=== PATIENT | female | born 1990 | race Caucasian/White ===

== ENCOUNTER 2017-05-04 08:44 | Emergency (ER) | payer SELFPAY ==
[~2017-05-04] VITALS: Ht 170.2 cm; Wt 95.4 kg
[~2017-05-04 08:44] MED LIST: LORT7.5T3 PO; PROM1SUP12 PR; Z.0.NO CURRENT MEDS
[2017-05-04 08:46] VITALS: BP 117/86; PULSE 91; RESP 18; TEMP 98.5; O2SAT 100
[2017-05-04] MEDS ORDERED: diphenhydrAMINE HCL 50 MG/ML VIAL IVP ONE (09:00)
[2017-05-04] MEDS ORDERED: PROCHLORPERAZINE INJ 10 MG/2 ML VIAL IVP ONE (09:00)
[2017-05-04] MEDS ORDERED: MORPHINE SULFATE 4 MG/ML INJ IV PUSH ONE ×2 (09:00→11:00)
[2017-05-04] MEDS ORDERED: methylPREDNISolone SOD SUCC 125 MG/2 ML VIAL IV PUSH ONE (09:00)
[2017-05-04] MEDS ORDERED: SODIUM CHLORIDE 0.9% FLUSH 10 ML FLUSH IVF PRN (09:00)
[2017-05-04] MEDS ORDERED: SODIUM CHLOR 0.9% 1000 ML INJ 1,000 ML IV ONE ×2 (09:00→10:15)
[2017-05-04] MEDS ORDERED: KETOROLAC TROMETHAMINE 30 MG/ML (IVP) VIAL IVP ONE (09:00)
[2017-05-04] MEDS ORDERED: ASTHMA INHALER (09:06)
--- NOTE | 2017-05-04 09:07 | PD ---
HPI Chief Complaint: Abdominal Pain Time Seen by Provider: 08:53 Travel History International Travel<30 days: No Contact w/Intl Traveler<30days: No Traveled to known affect area: No History of Present Illness HPI The patient is a 26-year-old female who presents emergency department for migraine. The patient has a history of migraines since age of 10 and has undergone previous workup in [place] where she was living with her migraine started. The patient states she was under the care of a physician was on Fioricet as needed for several years, however, lost health care insurance and does not currently have a primary physician. The patient's headache started 4 days ago, was located behind the right eye, now radiates to both aspects of the head in a bandlike fashion. The patient has photophobia, phonophobia, nausea, vomiting, and now has had a few episodes of diarrhea. She does complain of some posterior neck pain secondary to her headache. The patient states that it came on slowly, there is no thunderclap quality. She denies any fever, chills, or sweats. Symptoms are moderate, similar to previous headaches, and there are no current alleviating factors. PFSH Past Medical History Narrative Medical Migraines, ectopic Diminished Hearing: No Gastrointestinal Disorders: Yes (COLITIS) ?: Not LMP: ONE WEEK Past Surgical History Narrative Surgical Right fallopian removal after ectopic , maxillofacial surgery Social History Alcohol Use: No Tobacco Use: No Substance Use: No Allergies-Medications (Allergen,Severity, Reaction): Coded Allergies: Penicillin (Verified Allergy, Severe, HIVES, 05/04/17) Latex (Verified Allergy, Unknown, 05/04/17) Reported Meds & Prescriptions Reported Meds & Active Scripts Active Phenergan 25 mg supp (Promethazine HCl) 25 Mg Sup 25 Mg GA Q6HPRN FOR NAUSEA/VOMITING Lortab 7.5/500 (Acetaminophen/Hydrocodone Bitart) Tab 1 Tab PO Q4HPRN FOR PAIN Reported [Asthma Inhaler] No Current Meds (Miscellaneous Medication) Misc Review of Systems Except as stated in HPI: all other systems reviewed are Neg General / Constitutional: No: Fever HENT: Positive: Headaches, Neck Pain Cardiovascular: No: Chest Pain or Discomfort Respiratory: No: Shortness of Breath Gastrointestinal: Positive: Nausea, Vomiting, Diarrhea, No: Abdominal Pain Neurologic: Positive: Headache, No: Change in Mentation, Paresthesia, Sensory Disturbance Physical Exam Narrative GENERAL: Awake, alert, pleasant 26-year-old female who appears her stated age and is in no acute respiratory distress. She is initially examined in a darkened room secondary to photophobia. SKIN: Focused skin assessment warm/dry. HEAD: Atraumatic. Normocephalic. EYES: Pupils equal and round. Pupils are 4 mm bilateral and reactive. Patient is wearing glasses, is able to see fingers at a distance of 2 feet without difficulty. EOMs are intact. Photophobia noted upon initial exam. ENT: No nasal bleeding or discharge. Mucous membranes pink and moist. NECK: Trachea midline. No JVD. Patient is able flex her neck, no significant meningeal signs, mild tenderness of the paravertebral muscles. CARDIOVASCULAR: Regular rate and rhythm. No murmur appreciated. RESPIRATORY: No accessory muscle use. Clear to auscultation. Breath sounds equal bilaterally. GASTROINTESTINAL: Abdomen soft, non-tender, nondistended. No rebound tenderness. MUSCULOSKELETAL: No obvious deformities. No clubbing. No cyanosis. No edema. NEUROLOGICAL: Awake and alert. No obvious cranial nerve deficits. Motor grossly within normal limits. Normal speech. Nonfocal. Oriented 4. Follows commands without difficulty. PSYCHIATRIC: Appropriate mood and affect; insight and judgment normal. Data Data Last Documented VS Vital Signs Date Time Temp Pulse Resp B/P Pulse Ox O2 Delivery O2 Flow Rate FiO2 05/04/17 10:10 16 05/04/17 09:45 106 98 Room Air 05/04/17 08:46 98.5 117/86 Orders Ecg Monitoring (05/04/17 09:00) Iv Access Insert/Monitor (05/04/17 09:00) Oximetry (05/04/17 09:00) Sodium Chloride 0.9% Flush (Ns Flush) (05/04/17 09:00) Ketorolac Inj (Toradol Inj) (05/04/17 09:00) Prochlorperazine Inj (Compazine Inj) (05/04/17 09:00) Diphenhydramine Inj (Benadryl Inj) (05/04/17 09:00) Sodium Chlor 0.9% 1000 Ml Inj (Ns 1000 M (05/04/17 09:00) Methylprednisolone So Succ Inj (Solumedr (05/04/17 09:00) Morphine Inj (Morphine Inj) (05/04/17 09:30) Ondansetron Inj (Zofran Inj) (05/04/17 10:15) Ct Brain W/O Iv Contrast(Rout) (05/04/17 ) Sodium Chlor 0.9% 1000 Ml Inj (Ns 1000 M (05/04/17 10:15) Morphine Inj (Morphine Inj) (05/04/17 11:00) Morphine Inj (Morphine Inj) (05/04/17 11:00) MDM Medical Decision Making Medical Screen Exam Complete: Yes Emergency Medical Condition: Yes Medical Record Reviewed: Yes Interpretation(s) CT of the brain is negative. Differential Diagnosis Differential diagnosis includes migraine, status migraine, tension headache, glaucoma, cluster headache, subarachnoid hemorrhage, meningitis, abdominal migraine. Narrative Course IV was established, the patient was placed on cardiac telemetry monitoring, and placed on continuous pulse oximetry monitoring. The patient received Toradol 30 mg intravenously, Compazine 10 mg intravenously, Benadryl 50 mg intravenously , morphine 4 mg intravenously, Solu-Medrol 125 mg intravenously, 1 L of IV fluids. The patient was monitored in the emergency department. The patient was reevaluated at 10 AM, her headache had slightly improved, however, she has some persistent nausea with vomiting. Therefore, the patient was administered Zofran [address] the brain was ordered to rule out subarachnoid hemorrhage/intracranial hemorrhage. The patient was reevaluated at 10:55 AM, her nausea had resolved, she still had a headache at 4/10. Therefore, the patient was administered 4 mg of morphine intravenously. CT of the brain is negative. The patient is stable for outpatient follow-up. She will be provided a prescription for Fioricet and Phenergan. She is advised to follow-up with neurology on an outpatient basis and return if symptoms worsen or progress. Diagnosis Primary Impression: Cephalgia Qualified Code: R51 - Acute nonintractable headache, unspecified headache type Patient Instructions: General Instructions Additional Instructions: Please provide the patient a copy of her CT results at discharge. Follow-up with neurology. Fioricet and Phenergan as directed. Return if symptoms worsen or progress. Med/Other Pt SpecificInfo: Prescription(s) given Scripts Promethazine (Phenergan)25 Mg Abnyke05 Mg PO Q6H PRN (NAUSEA OR VOMITING) #15 TAB Ref 0 Prov:Jose Taylor MD 05/04/17 Aemkpezjrq-Zzoaaqxjaacut-Qpklldxy (Fioricet)50-300-40 Mg Cap1 Cap PO Q4H PRN ( HEADACHE) #15 CAP Ref 0 Prov:Jose Taylor MD 05/04/17 Disposition: 01 DISCHARGE HOME Condition: Stable Jose Taylor MD May 04, 2017 09:07
[2017-05-04] MEDS ORDERED: MORPHINE SULFATE 8 MG/ML INJ IV PUSH ONE ×2 (09:30→11:00)
[2017-05-04 09:45] VITALS: PULSE 106; RESP 15; O2SAT 98
[2017-05-04] MEDS ORDERED: ONDANSETRON HCL 4 MG/2 ML VIAL IV PUSH ONE (10:15)
--- NOTE | 2017-05-04 11:03 | RADRPT ---
EXAM DATE/TIME: 05/04/2017 10:23 [facility] COMPARISON: No previous studies available for comparison. INDICATIONS : Cephalgia. RADIATION DOSE: 63.94 CTDIvol (mGy) MEDICAL HISTORY : None SURGICAL HISTORY : None. ENCOUNTER: Initial ACUITY: 4 - 6 days PAIN SCALE: 5/10 LOCATION: Bilateral cranial TECHNIQUE: Multiple contiguous axial images were obtained of the head. Using automated exposure control and adj ustment of the mA and/or kV according to patient size, radiation dose was kept as low as reasonably a chievable to obtain optimal diagnostic quality images. DICOM format image data is available electro nically for review and comparison. FINDINGS: CEREBRUM: The ventricles are normal for age. No evidence of midline shift, mass lesion, hemorrhage or acute in farction. No extra-axial fluid collections are seen. POSTERIOR FOSSA: The cerebellum and brainstem are intact. The 4th ventricle is midline. The cerebellopontine angle i s unremarkable. EXTRACRANIAL: The visualized portion of the orbits is intact. SKULL: The calvaria is intact. No evidence of skull fracture. CONCLUSION: No acute disease. Dominick Warner MD on May 04, 2017 at 11:01 Board Certified Radiologist. This report was verified electronically.
[2017-05-04] MEDS ORDERED: BUTA1CAP PO (11:08)
[2017-05-04] MEDS ORDERED: PROM25TA10 PO (11:09)
[2017-05-04 11:42] VITALS: BP 107/60; PULSE 75; RESP 18; O2SAT 99
== END 2017-05-04 12:36 | disposition home or self-care (01) ==
LOC: PHED 08:44
DX: R51 Headache (principal); Z88.0 Allergy status to penicillin
CPT/HCPCS: 70450; 96361; 96374; 96375; 96376; 99285; J0780; J1200; J1885; J2270; J2405; J2930; J7030

== ENCOUNTER 2017-05-09 04:05 | Emergency (ER) | payer SELFPAY ==
[~2017-05-09] VITALS: Ht 170.2 cm; Wt 96.3 kg
[~2017-05-09 04:05] MED LIST changes: +ASTHMA INHALER; +BUTA1CAP PO; +PROM25TA10 PO
[2017-05-09 04:08] VITALS: BP 131/86; PULSE 92; TEMP 98.1; O2SAT 97
[2017-05-09] MEDS ORDERED: SODIUM CHLOR 0.9% 1000 ML INJ 1,000 ML IV ONE (04:33)
[2017-05-09] MEDS ORDERED: VENTAER INH (04:35)
--- NOTE | 2017-05-09 04:43 | PD ---
HPI Chief Complaint: Headache Time Seen by Provider: 04:33 Travel History International Travel<30 days: No Contact w/Intl Traveler<30days: No Traveled to known affect area: No History of Present Illness HPI The patient is a 26-year-old female with a history of migraine headaches who states she was worked up in [place] when she was living there. She states she has her typical migraine headache only worse of gradual onset, starting behind her right eye and associated with nausea without vomiting. The headache was of gradual onset and there was no thunderclap quality. She denies fever, chills, chest pain or shortness of breath. She states the headache is of similar symptoms with her previous headaches only worse. The headache is been going on for 9 days now. When she left the emergency department on the her headache was relieved but when she woke up she had her headache again. She does not have a primary care physician but her friend says she will work to find her a primary care physician. She states the morphine made her itch and she did not like that. She wants us to try Dilaudid. She denies any focal neurologic change. She states she tried Fioricet at home which is worked before but it did not work this time. She also used Phenergan for the nausea but it did not help her headache. On her last visit on the of last month she had a CT scan which was normal. She denies any sore throat, ear pain, fever , dysuria, frequency or urgency. Is no possibility of , she is been from her and has not had sex in several years. The patient states her headache is bandlike and a 9/10. PFSH Past Medical History Asthma: Yes Diminished Hearing: No Gastrointestinal Disorders: Yes (COLITIS) Respiratory: Yes (asthma) Migraines: Yes Tetanus Vaccination: Unknown Influenza Vaccination: No ?: Not LMP: april 23- Ectopic : Yes (right salpingectomy) Tubal Ligation: Yes Past Surgical History Other Surgery: Yes (UPPER MAXILLA FACIAL) Social History Alcohol Use: No Tobacco Use: No Substance Use: No Allergies-Medications (Allergen,Severity, Reaction): Coded Allergies: Penicillin (Verified Allergy, Severe, HIVES, 05/09/17) Latex (Verified Allergy, Unknown, 05/09/17) Reported Meds & Prescriptions Reported Meds & Active Scripts Active Phenergan (Promethazine HCl) 25 Mg Tablet 25 Mg PO Q6H PRN Fioricet (Kinvjkaufk-Wmbidrsdqdiht-Slpyzbrp) 50-300-40 Mg Cap 1 Cap PO Q4H PRN Reported Ventolin Hfa 18 GM Inh (Albuterol Sulfate) 90 Mcg/Act Aer 2 Puff INH Q4-6H PRN Review of Systems Except as stated in HPI: all other systems reviewed are Neg Physical Exam Narrative GENERAL: The patient is alert, oriented 3 in moderate apparent distress with her headache. Her vital signs show pulse rate of 92 but otherwise normal. SKIN: Focused skin assessment warm/dry. HEAD: Atraumatic. Normocephalic. EYES: Pupils equal and round. No scleral icterus. No injection or drainage. ENT: No nasal bleeding or discharge. Mucous membranes pink and moist. NECK: Trachea midline. No JVD. CARDIOVASCULAR: Regular rate and rhythm. No murmur appreciated. RESPIRATORY: No accessory muscle use. Clear to auscultation. Breath sounds equal bilaterally. GASTROINTESTINAL: Abdomen soft, non-tender, nondistended. Hepatic and splenic margins not palpable. MUSCULOSKELETAL: No obvious deformities. No clubbing. No cyanosis. No edema. NEUROLOGICAL: Awake and alert. No obvious cranial nerve deficits. Motor grossly within normal limits. Normal speech. PSYCHIATRIC: Appropriate mood and affect; insight and judgment normal. Data Data Last Documented VS Vital Signs Date Time Temp Pulse Resp B/P Pulse Ox O2 Delivery O2 Flow Rate FiO2 05/09/17 05:20 16 05/09/17 05:20 73 112/67 97 Room Air 05/09/17 04:08 98.1 Orders Ecg Monitoring (05/09/17 04:33) Iv Access Insert/Monitor (05/09/17 04:33) Oximetry (05/09/17 04:33) Sodium Chloride 0.9% Flush (Ns Flush) (05/09/17 04:45) Prochlorperazine Inj (Compazine Inj) (05/09/17 04:45) Diphenhydramine Inj (Benadryl Inj) (05/09/17 04:45) Hydromorphone Pf Inj (Dilaudid Pf Inj) (05/09/17 04:45) Sodium Chlor 0.9% 1000 Ml Inj (Ns 1000 M (05/09/17 04:33) Lorazepam Inj (Ativan Inj) (05/09/17 04:45) Ketorolac Inj (Toradol Inj) (05/09/17 05:00) Ondansetron Inj (Zofran Inj) (05/09/17 05:30) Hydromorphone Pf Inj (Dilaudid Pf Inj) (05/09/17 05:30) Lorazepam Inj (Ativan Inj) (05/09/17 05:30) MDM Medical Decision Making Medical Screen Exam Complete: Yes Emergency Medical Condition: Yes Medical Record Reviewed: Yes Differential Diagnosis Migraine headache, tension headache, tension/migraine combination headache, cluster headache, normal pressure hydrocephalus, subarachnoid hemorrhagehighly unlikely Narrative Course The patient appears to have both tension and migraine components to her headache. It is now 0545 and the patient is sleeping. Diagnosis Primary Impression: Mixed migraine and muscle contraction headache Additional Instructions: As we discussed, please follow-up with a primary care physician to get regular treatment for your headaches. Emergency room treatment alone is inadequate for your headaches. Med/Other Pt SpecificInfo: No Change to Meds Disposition: 01 DISCHARGE HOME Condition: Stable Subhash Santizo MD May 09, 2017 04:43
[2017-05-09] MEDS ORDERED: diphenhydrAMINE HCL 50 MG/ML VIAL IVP ONE (04:45)
[2017-05-09] MEDS ORDERED: SODIUM CHLORIDE 0.9% FLUSH 10 ML FLUSH IVF PRN (04:45)
[2017-05-09] MEDS ORDERED: PROCHLORPERAZINE INJ 10 MG/2 ML VIAL IVP ONE (04:45)
[2017-05-09] MEDS ORDERED: KETOROLAC TROMETHAMINE 60 MG/2 ML (IM) VIAL IM ONE (04:45)
[2017-05-09] MEDS ORDERED: LORazepam 2 MG/ML VIAL IV PUSH ONE ×2 (04:45→05:30)
[2017-05-09] MEDS ORDERED: HYDROmorphone HCL PF 1 MG/ML VIAL IVS ONE (04:45)
[2017-05-09] MEDS ORDERED: KETOROLAC TROMETHAMINE 60 MG/2 ML (IM) VIAL IVP ONE (05:00)
[2017-05-09 05:16] VITALS: BP 104/60; PULSE 86; RESP 16; O2SAT 97
[2017-05-09 05:20] VITALS: BP 112/67; PULSE 73; RESP 17; O2SAT 97
[2017-05-09] MEDS ORDERED: ONDANSETRON HCL 4 MG/2 ML VIAL IV ONE (05:30)
[2017-05-09] MEDS ORDERED: HYDROmorphone HCL PF 1 MG/ML VIAL IVP ONE (05:30)
[2017-05-09 06:20] VITALS: BP 111/65
[2017-05-09 06:22] VITALS: RESP 16
== END 2017-05-09 06:30 | disposition home or self-care (01) ==
LOC: PHED 04:05
DX: G43.809 Other migraine, not intractable, without status migrainosus (principal); Z87.09 Personal history of other diseases of the respiratory system; Z87.19 Personal history of other diseases of the digestive system; Z86.69 Personal history of other diseases of the nervous system and sense organs
CPT/HCPCS: 96361; 96374; 96375; 96376; 99284; J0780; J1170; J1200; J1885; J2060; J2405; J7030

== ENCOUNTER 2017-08-17 22:49 | Emergency (ER) | payer SELFPAY ==
[~2017-08-17] VITALS: Ht 170.2 cm; Wt 95.2 kg
[~2017-08-17 22:49] MED LIST changes: -ASTHMA INHALER; -LORT7.5T3 PO; -PROM1SUP12 PR; +VENTAER INH; -Z.0.NO CURRENT MEDS
[2017-08-17 22:51] VITALS: BP 123/72; PULSE 95; RESP 16; TEMP 97.9; O2SAT 99
[2017-08-17 23:10] VITALS: BP 123/72; PULSE 95; RESP 16; TEMP 97.9; O2SAT 99
--- NOTE | 2017-08-17 23:15 | PD ---
HPI Chief Complaint: Headache, N/V/D Time Seen by Provider: 22:59 Travel History International Travel<30 days: No Contact w/Intl Traveler<30days: No Traveled to known affect area: No History of Present Illness HPI Patient is a 26 year old female presents to the er with headache, nausea, vomiting and diarrhea for the past 24 hours. States she's had headaches like this before. SHe's tried ibuprofen without relief. Denies visual difficulty, focalized weakness. Denies abdominal pain, VB/VD. Denies blood in stool or emesis. Denies thunderclap presentation. She states symptoms are severe and gradually worsening. associated signs and symptoms as above, duration as above. PFSH Past Medical History Asthma: Yes Diminished Hearing: No Gastrointestinal Disorders: Yes (COLITIS) Respiratory: Yes (asthma) Migraines: Yes ?: Not LMP: 07/20/2017 Ectopic : Yes (right salpingectomy) Tubal Ligation: Yes Past Surgical History Other Surgery: Yes (UPPER MAXILLA FACIAL) Social History Alcohol Use: No Tobacco Use: No Substance Use: No Allergies-Medications (Allergen,Severity, Reaction): Coded Allergies: penicillin G (Unverified Allergy, Severe, HIVES, 08/17/17) latex (Unverified Allergy, Unknown, 08/17/17) Reported Meds & Prescriptions Reported Meds & Active Scripts Active Reported Ventolin Hfa 18 GM Inh (Albuterol Sulfate) 90 Mcg/Act Aer 2 Puff INH Q4-6H PRN Review of Systems Except as stated in HPI: all other systems reviewed are Neg Physical Exam Narrative GENERAL: WD/WN in moderate discomfort. SKIN: Warm and dry. HEAD: Atraumatic. Normocephalic. EYES: Pupils equal and round. No scleral icterus. No injection or drainage. ENT: No nasal bleeding or discharge. Mucous membranes pink and moist. NECK: Trachea midline. No JVD. CARDIOVASCULAR: Regular rate and rhythm. RESPIRATORY: No accessory muscle use. Clear to auscultation. Breath sounds equal bilaterally. GASTROINTESTINAL: Abdomen soft, non-tender, nondistended. Hepatic and splenic margins not palpable. No cva tenderness. MUSCULOSKELETAL: Extremities without clubbing, cyanosis, or edema. No obvious deformities. NEUROLOGICAL: Awake and alert. CN ii-xii intact. 5/5 strength in all four extremities. Cerebellar testing negative. PSYCHIATRIC: Appropriate mood and affect; insight and judgment normal. Data Data Last Documented VS Vital Signs Date Time Temp Pulse Resp B/P (MAP) Pulse Ox O2 Delivery O2 Flow Rate FiO2 08/17/17 23:15 18 08/17/17 23:10 97.9 95 123/72 (89) 99 Orders Orders Urinalysis - C+S If Indicated (08/17/17 22:59) Ed Urine Pregnancytest Poc (08/17/17 22:59) Ecg Monitoring (08/17/17 23:22) Iv Access Insert/Monitor (08/17/17 23:22) Oximetry (08/17/17 23:22) Sodium Chloride 0.9% Flush (Ns Flush) (08/17/17 23:30) Diphenhydramine Inj (Benadryl Inj) (08/17/17 23:30) Metoclopramide Inj (Reglan Inj) (08/17/17 23:30) Ct Brain W/O Iv Contrast(Rout) (08/18/17 ) Complete Blood Count With Diff (08/18/17 00:17) Comprehensive Metabolic Panel (08/18/17 00:17) Lipase (08/18/17 00:17) Sodium Chloride 0.9% Flush (Ns Flush) (08/18/17 00:30) Jsnb-Smywk-Qfiw 325-50-40 Mg (Fioricet 3 (08/18/17 00:30) Sumatriptan Inj (Imitrex Inj) (08/18/17 00:30) Labs Laboratory Tests Test 08/17/17 23:19 08/18/17 00:25 Urine Color YELLOW Urine Turbidity CLEAR Urine pH 6.5 Urine Specific [place] 1.025 Urine Protein NEG mg/dL Urine Glucose (UA) NEG mg/dL Urine Ketones 15 mg/dL Urine Occult Blood MOD Urine Nitrite NEG Urine Bilirubin NEG Urine Leukocyte Esterase NEG Urine RBC 3-5 /hpf Urine WBC 0-2 /hpf Urine Squamous Epithelial Cells 6-8 /hpf Urine Bacteria OCC /hpf Microscopic Urinalysis Comment CULT NOT INDICATED White Blood Count 7.5 TH/MM3 Red Blood Count 4.84 MIL/MM3 Hemoglobin 14.2 GM/DL Hematocrit 41.8 % Mean Corpuscular Volume 86.5 FL Mean Corpuscular Hemoglobin 29.3 PG Mean Corpuscular Hemoglobin Concent 33.9 % Red Cell Distribution Width 12.0 % Platelet Count 256 TH/MM3 Mean Platelet Volume 8.9 FL Neutrophils (%) (Auto) 69.7 % Lymphocytes (%) (Auto) 22.2 % Monocytes (%) (Auto) 6.4 % Eosinophils (%) (Auto) 1.2 % Basophils (%) (Auto) 0.5 % Neutrophils # (Auto) 5.2 TH/MM3 Lymphocytes # (Auto) 1.7 TH/MM3 Monocytes # (Auto) 0.5 TH/MM3 Eosinophils # (Auto) 0.1 TH/MM3 Basophils # (Auto) 0.0 TH/MM3 CBC Comment DIFF FINAL Differential Comment Blood Urea Nitrogen 10 MG/DL Creatinine 0.88 MG/DL Random Glucose 119 MG/DL Total Protein 7.7 GM/DL Albumin 4.1 GM/DL Calcium Level 8.4 MG/DL Alkaline Phosphatase 87 U/L Aspartate Amino Transf (AST/SGOT) 12 U/L Alanine Aminotransferase (ALT/SGPT) 21 U/L Total Bilirubin 0.5 MG/DL Sodium Level 138 MEQ/L Potassium Level 3.2 MEQ/L Chloride Level 105 MEQ/L Carbon Dioxide Level 24.0 MEQ/L Anion Gap 9 MEQ/L Estimat Glomerular Filtration Rate 77 ML/MIN Lipase 151 U/L MDM Medical Decision Making Medical Screen Exam Complete: Yes Emergency Medical Condition: Yes Differential Diagnosis Recurrent headache, migraine, cluster, acute intracranial pathology unlikely, , gastritis, gastroenteritis, electrolyte abnormality. Narrative Course Patient roomed in ed, given reglan, phenergan benadryl. No relief in symptoms. CT head ordered, basic labs and additional medication. Discussed with Dr. Galan at 0030 at the end of my shift to follow up workup reassess patient and disposition appropriately. Patient low risk for spontaneous SAH, no nuchal rigidty and no fever. Dominick Cox MD Aug 17, 2017 23:15
[2017-08-17 23:30] LABS: BLOOD, URINE MOD (NEG); GLUCOSE,URINE NEG (NEG); KETONE, URINE 15 mg/dL (NEG); NITRITE,URINE NEG (NEG); PH, URINE 6.5 (5.0-8.5)
[2017-08-17] MEDS ORDERED: diphenhydrAMINE HCL 50 MG/ML VIAL IVP ONE (23:30)
[2017-08-17] MEDS ORDERED: SODIUM CHLORIDE 0.9% FLUSH 10 ML FLUSH IVF PRN (23:30)
[2017-08-17] MEDS ORDERED: METOCLOPRAMIDE HCL 10 MG/2 ML VIAL IVP ONE (23:30)
[2017-08-17 23:37] LABS: URINE COLOR YELLOW (YELLW/STRAW)
[2017-08-17 23:38] LABS: BACTERIA, URINE OCC /hpf; COMMENT (UR) CULT NOT INDICATED; CULTURE IF INDICATED CULT NOT INDICATED; WBC, URINE 0-2 /hpf (0-5)
[2017-08-18 00:10] VITALS: BP 135/64; PULSE 91; RESP 18; O2SAT 95
[2017-08-18] MEDS ORDERED: ACETAMIN 325 MG/BUTALBITAL 50 MG/CAFFEINE 40 MG TAB PO ONE (00:30)
[2017-08-18] MEDS ORDERED: SODIUM CHLORIDE 0.9% FLUSH 10 ML FLUSH IV FLUSH PRN (00:30)
[2017-08-18] MEDS ORDERED: SUMAtriptan INJ 6 MG/0.5 ML VIAL SQ ONE (00:30)
[2017-08-18 00:33] LABS: AUTOMATED NEUTROPHIL # 5.2 TH/MM3 (1.8-7.7); BASOPHIL % 0.5 % (0.0-2.0); EOSINOPHIL # 0.1 TH/MM3 (0-0.4); EOSINOPHIL % 1.2 % (0.0-4.0); HEMATOCRIT 41.8 % (35.0-46.0); HEMO FLAGS DIFF FINAL; LYMPH % 22.2 % (9.0-44.0); LYMPHOCYTE # 1.7 TH/MM3 (1.0-4.8); MEAN CELL VOLUME 86.5 FL (80.0-100.0); MEAN CORPUSCULAR HEMOGLOBIN 29.3 PG (27.0-34.0); MEAN CORPUSCULAR HGB CONC 33.9 % (32.0-36.0); MONO % 6.4 % (0.0-8.0); NEUT % 69.7 % (16.0-70.0); PLATELET COUNT 256 TH/MM3 (150-450); RED BLOOD COUNT 4.84 MIL/MM3 (4.00-5.30); WHITE BLOOD COUNT 7.5 TH/MM3 (4.0-11.0)
[2017-08-18 00:39] LABS: CHLORIDE 105 MEQ/L (98-107); POTASSIUM 3.2 MEQ/L (3.5-5.1); SODIUM (NA) 138 MEQ/L (136-145)
[2017-08-18 00:43] LABS: ANION GAP 9 MEQ/L (5-15); BLOOD UREA NITROGEN 10 MG/DL (7-18)
[2017-08-18 00:46] LABS: ALT (GPT) 21 U/L (10-53); AST (GOT) 12 U/L (15-37); GLOMERULAR FILTRATION RATE 77 ML/MIN (>89)
--- NOTE | 2017-08-18 00:46 | RADRPT ---
EXAM DATE/TIME: 08/18/2017 00:27 [facility] COMPARISON: CT BRAIN W/O CONTRAST, May 04, 2017, 10:23. INDICATIONS : Cephalgia. Migraine symptoms. RADIATION DOSE: 55.62 CTDIvol (mGy) MEDICAL HISTORY : Migraines, asthma SURGICAL HISTORY : Tubal ligation. upper maxilla surgery ENCOUNTER: Initial ACUITY: 1 day PAIN SCALE: 10/10 LOCATION: cranial TECHNIQUE: Multiple contiguous axial images were obtained of the head. Using automated exposure control and adj ustment of the mA and/or kV according to patient size, radiation dose was kept as low as reasonably a chievable to obtain optimal diagnostic quality images. DICOM format image data is available electro nically for review and comparison. FINDINGS: CEREBRUM: The ventricles are normal for age. No evidence of midline shift, mass lesion, hemorrhage or acute in farction. No extra-axial fluid collections are seen. POSTERIOR FOSSA: The cerebellum and brainstem are intact. The 4th ventricle is midline. The cerebellopontine angle i s unremarkable. EXTRACRANIAL: The visualized portion of the orbits is intact. SKULL: The calvaria is intact. No evidence of skull fracture. CONCLUSION: Normal examination. Asael Mckenna MD on August 18, 2017 at 0:44 Board Certified Radiologist. This report was verified electronically.
[2017-08-18 00:48] LABS: TOTAL BILIRUBIN ADULT 0.5 MG/DL (0.2-1.0)
[2017-08-18 00:49] LABS: ALKALINE PHOSPHATASE 87 U/L (45-117)
[2017-08-18 01:10] VITALS: BP 152/88; PULSE 74; RESP 18; O2SAT 95
[2017-08-18] MEDS ORDERED: POTASSIUM CHLORIDE 20 MEQ CONTROLLED RELEASE TAB PO ONE (01:45)
[2017-08-18] MEDS ORDERED: BUTA1CAP PO (01:50)
--- NOTE | 2017-08-18 01:51 | PD ---
Physical Exam Narrative Received sign out to follow up CT brain, labs and reevaluate patient. 26yo F with long history of migraine here with headache similar to her migraine. Pt was given reglan, diphenhydramine but headache did not improve so fioricet and sumatriptan given as well. Labs reviewed, no leukocytosis. Mild hypokalemia, replaced orally. Lipase normal. UA showed no leukocyte. Culture not indicated. CT brain negative. Pt reevaluated at bedside and said her headache improved. Nausea is gone as well. Said she was given fioricet prescription from ED last time and it helped. Currently does not have PMD or neurologist. Will give a few doses as prescription and have her follow up with [facility]. Return precautions given. Data Data Last Documented VS Vital Signs Date Time Temp Pulse Resp B/P (MAP) Pulse Ox O2 Delivery O2 Flow Rate FiO2 08/17/17 23:15 18 08/17/17 23:10 97.9 95 123/72 (89) 99 Orders Orders Urinalysis - C+S If Indicated (08/17/17 22:59) Ed Urine Pregnancytest Poc (08/17/17 22:59) Ecg Monitoring (08/17/17 23:22) Iv Access Insert/Monitor (08/17/17 23:22) Oximetry (08/17/17 23:22) Sodium Chloride 0.9% Flush (Ns Flush) (08/17/17 23:30) Diphenhydramine Inj (Benadryl Inj) (08/17/17 23:30) Metoclopramide Inj (Reglan Inj) (08/17/17 23:30) Ct Brain W/O Iv Contrast(Rout) (08/18/17 ) Complete Blood Count With Diff (08/18/17 00:17) Comprehensive Metabolic Panel (08/18/17 00:17) Lipase (08/18/17 00:17) Sodium Chloride 0.9% Flush (Ns Flush) (08/18/17 00:30) Pzmu-Ksceq-Cylw 325-50-40 Mg (Fioricet 3 (08/18/17 00:30) Sumatriptan Inj (Imitrex Inj) (08/18/17 00:30) Potassium Chloride (Kcl) (08/18/17 01:45) Labs Laboratory Tests Test 08/17/17 23:19 08/18/17 00:25 Urine Color YELLOW Urine Turbidity CLEAR Urine pH 6.5 Urine Specific [place] 1.025 Urine Protein NEG mg/dL Urine Glucose (UA) NEG mg/dL Urine Ketones 15 mg/dL Urine Occult Blood MOD Urine Nitrite NEG Urine Bilirubin NEG Urine Leukocyte Esterase NEG Urine RBC 3-5 /hpf Urine WBC 0-2 /hpf Urine Squamous Epithelial Cells 6-8 /hpf Urine Bacteria OCC /hpf Microscopic Urinalysis Comment CULT NOT INDICATED White Blood Count 7.5 TH/MM3 Red Blood Count 4.84 MIL/MM3 Hemoglobin 14.2 GM/DL Hematocrit 41.8 % Mean Corpuscular Volume 86.5 FL Mean Corpuscular Hemoglobin 29.3 PG Mean Corpuscular Hemoglobin Concent 33.9 % Red Cell Distribution Width 12.0 % Platelet Count 256 TH/MM3 Mean Platelet Volume 8.9 FL Neutrophils (%) (Auto) 69.7 % Lymphocytes (%) (Auto) 22.2 % Monocytes (%) (Auto) 6.4 % Eosinophils (%) (Auto) 1.2 % Basophils (%) (Auto) 0.5 % Neutrophils # (Auto) 5.2 TH/MM3 Lymphocytes # (Auto) 1.7 TH/MM3 Monocytes # (Auto) 0.5 TH/MM3 Eosinophils # (Auto) 0.1 TH/MM3 Basophils # (Auto) 0.0 TH/MM3 CBC Comment DIFF FINAL Differential Comment Blood Urea Nitrogen 10 MG/DL Creatinine 0.88 MG/DL Random Glucose 119 MG/DL Total Protein 7.7 GM/DL Albumin 4.1 GM/DL Calcium Level 8.4 MG/DL Alkaline Phosphatase 87 U/L Aspartate Amino Transf (AST/SGOT) 12 U/L Alanine Aminotransferase (ALT/SGPT) 21 U/L Total Bilirubin 0.5 MG/DL Sodium Level 138 MEQ/L Potassium Level 3.2 MEQ/L Chloride Level 105 MEQ/L Carbon Dioxide Level 24.0 MEQ/L Anion Gap 9 MEQ/L Estimat Glomerular Filtration Rate 77 ML/MIN Lipase 151 U/L [facility] Supervised Visit with KHUSHBOO: No Diagnosis Primary Impression: Migraine Qualified Codes: G43.909 - Migraine, unspecified, not intractable, without status migrainosus Patient Instructions: General Instructions Departure Forms: Tests/Procedures Additional Instruction: Please follow up with [facility] in 2-3 days. Return to the ED if symptoms worsen. Med/Other Pt SpecificInfo: Prescription(s) given Scripts Qqpnthnqww-Wgpjpbfynsuhz-Oqelinip (Fioricet) 50-300-40 Mg Cap 1 CAP PO Q4H Y for HEADACHE, #10 CAP 0 Refills Prov: Yenifer Galan DO 08/18/17 Disposition: 01 DISCHARGE HOME Condition: Stable Yenifer Galan DO Aug 18, 2017 01:50
[2017-08-18 02:05] VITALS: RESP 16
[2017-08-18 02:10] VITALS: BP 113/70
== END 2017-08-18 02:22 | disposition home or self-care (01) ==
LOC: PHED 22:49
DX: G43.909 Migraine, unspecified, not intractable, without status migrainosus (principal); E87.6 Hypokalemia
CPT/HCPCS: 70450; 80053; 81001; 83690; 84703; 85025; 96372; 96374; 96375; 99285; J1200; J2765; J3030

== ENCOUNTER 2018-04-26 12:52 | Emergency (ER) | payer OTHER ==
[~2018-04-26 12:52] MED LIST changes: -PROM25TA10 PO
[2018-04-26 12:58] VITALS: BP 140/76; PULSE 97; RESP 16; TEMP 98.6; O2SAT 98
[2018-04-26] MEDS ORDERED: SODIUM CHLOR 0.9% 1000 ML INJ 1,000 ML IV SCH (14:05)
[2018-04-26 14:15] VITALS: BP 151/88; PULSE 93; RESP 16; O2SAT 98
[2018-04-26] MEDS ORDERED: KETOROLAC TROMETHAMINE 30 MG/ML (IVP) VIAL IVP ONE (14:15)
[2018-04-26] MEDS ORDERED: DEXAMETHASONE SOD PHOS 20 MG/5 ML VIAL IV PUSH ONE (14:15)
[2018-04-26] MEDS ORDERED: diphenhydrAMINE HCL 50 MG/ML VIAL IVP ONE (14:15)
[2018-04-26] MEDS ORDERED: METOCLOPRAMIDE HCL 10 MG/2 ML VIAL IVP ONE (14:15)
[2018-04-26] MEDS ORDERED: SODIUM CHLORIDE 0.9% FLUSH 10 ML FLUSH IV FLUSH PRN (14:15)
[2018-04-26] MEDS ORDERED: SODIUM CHLOR 0.9% 1000 ML INJ 1,000 ML IV ONE (14:15)
--- NOTE | 2018-04-26 14:16 | PD ---
HPI Chief Complaint: Headache Time Seen by Provider: 14:00 Travel History International Travel<30 days: No Contact w/Intl Traveler<30days: No Traveled to known affect area: No History of Present Illness HPI Patient is a 27-year-old female with history of migraines, presents the emergency room with complaints of a migraine headache. Patient reports that for the past 2-3 days, she has been having nausea, vomiting and diarrhea. Patient denies any abdominal pain or cramping. Patient reports that she has been having problems keeping any fluids. Patient reports that in addition to her GI issues, she has been having migraine headache. Patient reports that she has history of migraines and she does take Fioricet for this, reports that since she cannot keep anything down, she cannot get any relief with her symptoms. Patient reports that she has more of a frontal headache which shoots to her back of her head. Reports photophobia with her headache, reports nausea and vomiting with her symptoms. Patient reports that her migraines are similar to her previous symptoms, denies any thunderclap headache, reports that this is not the worst headache of her life. Patient reports that she was seen in this ER previously and had a CT of the head which was normal, patient requesting medications for her migraine headache. Patient denies any fever or chills, denies any chest pain or shortness of breath, patient with no other complaints. PFSH Past Medical History Asthma: Yes Diminished Hearing: No Gastrointestinal Disorders: Yes (COLITIS) Respiratory: Yes (asthma) Migraines: Yes Influenza Vaccination: No ?: Not LMP: 04/07/18 Ectopic : Yes (right salpingectomy) Tubal Ligation: Yes Past Surgical History Other Surgery: Yes (UPPER MAXILLA FACIAL) Social History Alcohol Use: Yes (RARELY) Tobacco Use: No Substance Use: No Allergies-Medications (Allergen,Severity, Reaction): Coded Allergies: penicillin G (Unverified Allergy, Severe, HIVES, 04/26/18) acetaminophen (Verified Allergy, Unknown, 04/26/18) latex (Unverified Allergy, Unknown, 04/26/18) oxycodone (Verified Allergy, Unknown, 04/26/18) Reported Meds & Prescriptions Reported Meds & Active Scripts Active Review of Systems General / Constitutional: No: Fever Eyes: No: Visual changes HENT: Positive: Headaches, No: Neck Stiffness, Neck Pain Cardiovascular: No: Chest Pain or Discomfort, Syncope Respiratory: No: Shortness of Breath Gastrointestinal: Positive: Nausea, Vomiting, Diarrhea, No: Abdominal Pain Genitourinary: No: Dysuria Musculoskeletal: No: Pain Skin: No Rash Neurologic: No: Weakness Psychiatric: No: Depression Endocrine: No: Polydipsia Hematologic/Lymphatic: No: Easy Bruising Physical Exam Narrative GENERAL: Mild distress SKIN: Focused skin assessment warm/dry. HEAD: Atraumatic. Normocephalic. EYES: Pupils equal and round. No scleral icterus. No injection or drainage. ENT: No nasal bleeding or discharge. Mucous membranes pink and moist. NECK: Trachea midline. No JVD. CARDIOVASCULAR: Regular rate and rhythm. No murmur appreciated. RESPIRATORY: No accessory muscle use. Clear to auscultation. Breath sounds equal bilaterally. GASTROINTESTINAL: Abdomen soft, non-tender, nondistended. Hepatic and splenic margins not palpable. MUSCULOSKELETAL: No obvious deformities. No clubbing. No cyanosis. No edema. NEUROLOGICAL: Awake and alert. No obvious cranial nerve deficits. Motor grossly within normal limits. Normal speech. CN 2-12 grossly intact with no neurological deficits PSYCHIATRIC: Appropriate mood and affect; insight and judgment normal. Data Data Last Documented VS Vital Signs Date Time Temp Pulse Resp B/P (MAP) Pulse Ox O2 Delivery O2 Flow Rate FiO2 04/26/18 14:17 16 98 Room Air 04/26/18 14:15 93 04/26/18 12:58 98.6 Orders Orders Complete Blood Count With Diff (04/26/18 14:05) Comprehensive Metabolic Panel (04/26/18 14:05) Lipase (04/26/18 14:05) Urinalysis - C+S If Indicated (04/26/18 14:05) Iv Access Insert/Monitor (04/26/18 14:05) Ecg Monitoring (04/26/18 14:05) Oximetry (04/26/18 14:05) Sodium Chlor 0.9% 1000 Ml Inj (Ns 1000 M (04/26/18 14:05) Sodium Chloride 0.9% Flush (Ns Flush) (04/26/18 14:15) Ed Urine Pregnancytest Poc (04/26/18 14:05) Ketorolac Inj (Toradol Inj) (04/26/18 14:15) Diphenhydramine Inj (Benadryl Inj) (04/26/18 14:15) Metoclopramide Inj (Reglan Inj) (04/26/18 14:15) Dexamethasone Inj (Decadron Inj) (04/26/18 14:15) Sodium Chlor 0.9% 1000 Ml Inj (Ns 1000 M (04/26/18 14:15) Labs Laboratory Tests Test 04/26/18 14:00 04/26/18 14:10 Urine Color YELLOW Urine Turbidity CLEAR Urine pH 7.5 Urine Specific [place] 1.015 Urine Protein NEG mg/dL Urine Glucose (UA) NEG mg/dL Urine Ketones NEG mg/dL Urine Occult Blood NEG Urine Nitrite NEG Urine Bilirubin NEG Urine Urobilinogen 0.2 MG/DL Urine Leukocyte Esterase TRACE Urine RBC 0-3 /hpf Urine WBC 3-5 /hpf Urine Squamous Epithelial Cells 0-5 /hpf Urine Bacteria FEW /hpf Microscopic Urinalysis Comment CULT NOT INDICATED White Blood Count 10.4 TH/MM3 Red Blood Count 5.16 MIL/MM3 Hemoglobin 15.6 GM/DL Hematocrit 44.8 % Mean Corpuscular Volume 86.9 FL Mean Corpuscular Hemoglobin 30.3 PG Mean Corpuscular Hemoglobin Concent 34.8 % Red Cell Distribution Width 13.2 % Platelet Count 338 TH/MM3 Mean Platelet Volume 8.9 FL Neutrophils (%) (Auto) 82.6 % Lymphocytes (%) (Auto) 11.8 % Monocytes (%) (Auto) 5.2 % Eosinophils (%) (Auto) 0.2 % Basophils (%) (Auto) 0.2 % Neutrophils # (Auto) 8.7 TH/MM3 Lymphocytes # (Auto) 1.2 TH/MM3 Monocytes # (Auto) 0.5 TH/MM3 Eosinophils # (Auto) 0.0 TH/MM3 Basophils # (Auto) 0.0 TH/MM3 CBC Comment AUTO DIFF Differential Comment AUTO DIFF CONFIRMED Platelet Estimate NORMAL Platelet Morphology Comment ENLARGED Red Cell Morphology Comment NORMAL Blood Urea Nitrogen 8 MG/DL Creatinine 0.91 MG/DL Random Glucose 84 MG/DL Total Protein 8.7 GM/DL Albumin 4.4 GM/DL Calcium Level 9.2 MG/DL Alkaline Phosphatase 88 U/L Aspartate Amino Transf (AST/SGOT) 12 U/L Alanine Aminotransferase (ALT/SGPT) 27 U/L Total Bilirubin 0.5 MG/DL Sodium Level 138 MEQ/L Potassium Level 3.5 MEQ/L Chloride Level 103 MEQ/L Carbon Dioxide Level 27.4 MEQ/L Anion Gap 8 MEQ/L Estimat Glomerular Filtration Rate 74 ML/MIN Lipase 149 U/L MDM Medical Decision Making Medical Screen Exam Complete: Yes Emergency Medical Condition: Yes Medical Record Reviewed: Yes Interpretation(s) Vital Signs Date Time Temp Pulse Resp B/P (MAP) Pulse Ox O2 Delivery O2 Flow Rate FiO2 04/26/18 12:58 98.6 97 16 140/76 (97) 98 Differential Diagnosis Cephalgia, gastritis, gastroenteritis, electrolyte abnormality Narrative Course During the course of the patients emergency department visit, the patients history, examination, and differential diagnosis were reviewed with the patient. The patient was placed on a monitoring specialist with oximetry and frequent blood pressure monitoring. The patient had an IV access obtained and blood work sent for analysis. The patient was initially provided migraine cocktail, patient with benign neurological exam, her headache is similar to her past migraine headache she had in the past. She did have a recent CT of her head on August 18, 2017 which was benign. Patient did not require repeat CAT scan of her head as her symptoms are similar and she has a normal neurological exam. The patients laboratory studies were reviewed and remarkable for Laboratory Tests Test 04/26/18 14:00 04/26/18 14:10 Urine Color YELLOW (YELLW/STRAW) Urine Turbidity CLEAR (CLEAR) Urine pH 7.5 (5.0-8.5) Urine Specific [place] 1.015 (1.002-1.035) Urine Protein NEG mg/dL (NEG-TRACE) Urine Glucose (UA) NEG mg/dL (NEG) Urine Ketones NEG mg/dL (NEG) Urine Occult Blood NEG (NEG) Urine Nitrite NEG (NEG) Urine Bilirubin NEG (NEG) Urine Urobilinogen 0.2 MG/DL (LESS THAN Urine Leukocyte Esterase TRACE (NEG) Urine RBC 0-3 /hpf (0-3) Urine WBC 3-5 /hpf (0-5) Urine Squamous Epithelial Cells 0-5 /hpf (0-5) Urine Bacteria FEW /hpf (NONE) Microscopic Urinalysis Comment CULT NOT INDICATED White Blood Count 10.4 TH/MM3 (4.0-11.0) Red Blood Count 5.16 MIL/MM3 (4.00-5.30) Hemoglobin 15.6 GM/DL (11.6-15.3) Hematocrit 44.8 % (35.0-46.0) Mean Corpuscular Volume 86.9 FL (80.0-100.0) Mean Corpuscular Hemoglobin 30.3 PG (27.0-34.0) Mean Corpuscular Hemoglobin Concent 34.8 % (32.0-36.0) Red Cell Distribution Width 13.2 % (11.6-17.2) Platelet Count 338 TH/MM3 (150-450) Mean Platelet Volume 8.9 FL (7.0-11.0) Neutrophils (%) (Auto) 82.6 % (16.0-70.0) Lymphocytes (%) (Auto) 11.8 % (9.0-44.0) Monocytes (%) (Auto) 5.2 % (0.0-8.0) Eosinophils (%) (Auto) 0.2 % (0.0-4.0) Basophils (%) (Auto) 0.2 % (0.0-2.0) Neutrophils # (Auto) 8.7 TH/MM3 (1.8-7.7) Lymphocytes # (Auto) 1.2 TH/MM3 (1.0-4.8) Monocytes # (Auto) 0.5 TH/MM3 (0-0.9) Eosinophils # (Auto) 0.0 TH/MM3 (0-0.4) Basophils # (Auto) 0.0 TH/MM3 (0-0.2) CBC Comment AUTO DIFF Differential Comment AUTO DIFF CONFIRMED Platelet Estimate NORMAL (NORMAL) Platelet Morphology Comment ENLARGED (NORMAL) Red Cell Morphology Comment NORMAL (NORMAL) Blood Urea Nitrogen 8 MG/DL (7-18) Creatinine 0.91 MG/DL (0.50-1.00) Random Glucose 84 MG/DL (74-106) Total Protein 8.7 GM/DL (6.4-8.2) Albumin 4.4 GM/DL (3.4-5.0) Calcium Level 9.2 MG/DL (8.5-10.1) Alkaline Phosphatase 88 U/L (45-117) Aspartate Amino Transf (AST/SGOT) 12 U/L (15-37) Alanine Aminotransferase (ALT/SGPT) 27 U/L (10-53) Total Bilirubin 0.5 MG/DL (0.2-1.0) Sodium Level 138 MEQ/L (136-145) Potassium Level 3.5 MEQ/L (3.5-5.1) Chloride Level 103 MEQ/L (98-107) Carbon Dioxide Level 27.4 MEQ/L (21.0-32.0) Anion Gap 8 MEQ/L (5-15) Estimat Glomerular Filtration Rate 74 ML/MIN (>89) Lipase 149 U/L (73-393) Patient reevaluated, patient reports complete resolution of symptoms at this time. Patient with a normal neurological exam, all labs were reviewed with the patient, she will follow with neurologist and will return to the emergency room as needed. Diagnosis Primary Impression: Cephalgia Qualified Codes: R51 - Headache Patient Instructions: General Instructions Additional Instructions: Please follow up with your primary care doctor in 2-3 days Return to the ER if symptoms worsen or progress Return to the ER as needed Disposition: 01 DISCHARGE HOME Condition: Stable Yarely Bailon DO Apr 26, 2018 14:16
[2018-04-26 14:17] VITALS: RESP 16; O2SAT 98
[2018-04-26 14:19] LABS: BILIRUBIN, URINE NEG (NEG); BLOOD, URINE NEG (NEG); GLUCOSE,URINE NEG (NEG); KETONE, URINE NEG (NEG); NITRITE,URINE NEG (NEG); PH, URINE 7.5 (5.0-8.5); URINE COLOR YELLOW (YELLW/STRAW); URINE LEUKOCYTE ESTERASE TRACE (NEG)
[2018-04-26 14:23] LABS: AUTOMATED NEUTROPHIL # 8.7 TH/MM3 (1.8-7.7); BASOPHIL % 0.2 % (0.0-2.0); EOSINOPHIL % 0.2 % (0.0-4.0); HEMATOCRIT 44.8 % (35.0-46.0); HEMOGLOBIN 15.6 GM/DL (11.6-15.3); LYMPH % 11.8 % (9.0-44.0); LYMPHOCYTE # 1.2 TH/MM3 (1.0-4.8); MEAN CELL VOLUME 86.9 FL (80.0-100.0); MEAN CORPUSCULAR HEMOGLOBIN 30.3 PG (27.0-34.0); MEAN CORPUSCULAR HGB CONC 34.8 % (32.0-36.0); MEAN PLATELET VOLUME 8.9 FL (7.0-11.0); MONO % 5.2 % (0.0-8.0); MONOCYTE # 0.5 TH/MM3 (0-0.9); NEUT % 82.6 % (16.0-70.0); PLATELET COUNT 338 TH/MM3 (150-450); RED BLOOD COUNT 5.16 MIL/MM3 (4.00-5.30); RED CELL DISTRIBUTION WIDTH 13.2 % (11.6-17.2); WHITE BLOOD COUNT 10.4 TH/MM3 (4.0-11.0)
[2018-04-26 14:28] LABS: CHLORIDE 103 MEQ/L (98-107); SODIUM (NA) 138 MEQ/L (136-145)
[2018-04-26 14:30] LABS: CALCIUM 9.2 MG/DL (8.5-10.1)
[2018-04-26 14:31] LABS: ALBUMIN 4.4 GM/DL (3.4-5.0); BICARBONATE 27.4 MEQ/L (21.0-32.0); BLOOD UREA NITROGEN 8 MG/DL (7-18); GLUCOSE,RANDOM 84 MG/DL (74-106)
[2018-04-26 14:34] LABS: ALT (GPT) 27 U/L (10-53); AST (GOT) 12 U/L (15-37); CREATININE 0.91 MG/DL (0.50-1.00); GLOMERULAR FILTRATION RATE 74 ML/MIN (>89)
[2018-04-26 14:36] LABS: TOTAL BILIRUBIN ADULT 0.5 MG/DL (0.2-1.0); TOTAL PROTEIN 8.7 GM/DL (6.4-8.2)
[2018-04-26 14:37] LABS: BACTERIA, URINE FEW /hpf; RBC, URINE 0-3 /hpf (0-3); SQUAMOUS EPITHELIAL CELL URINE 0-5 /hpf (0-5)
[2018-04-26 14:37] LABS: ALKALINE PHOSPHATASE 88 U/L (45-117)
== END 2018-04-26 15:29 | disposition home or self-care (01) ==
LOC: PHED 12:52
DX: G43.909 Migraine, unspecified, not intractable, without status migrainosus (principal); R11.2 Nausea with vomiting, unspecified; R19.7 Diarrhea, unspecified; H53.149 Visual discomfort, unspecified; J45.909 Unspecified asthma, uncomplicated; Z88.0 Allergy status to penicillin; Z88.5 Allergy status to narcotic agent
CPT/HCPCS: 80053; 81001; 83690; 84703; 85025; 96361; 96374; 96375; 99284; J1100; J1200; J1885; J2765; J7030